=== PATIENT | male | born 1980 | race Caucasian/White ===

== ENCOUNTER 2021-11-17 01:15 | Emergency (ER) | payer OTHER ==
[~2021-11-17] VITALS: Ht 188 cm; Wt 148.3 kg
[~2021-11-17 01:15] MED LIST: ACET325 PO; CIPR500 PO; CITA20 PO; CRUTCH4 USE; CYCL10 PO; DIAZ5 PO; DOXY100 PO; HYDACE5 PO; IBUP600 PO; INDO50 PO; LISI20 PO; LISI5 PO; LORA.5 PO; METR500 PO; NAPR500 PO; OXYACE5T PO; OXYC5 PO; PANT40 PO; PARO10 PO; PARO20 PO; QUET25 PO; THIA100 PO; TRAM50 PO; TRAZ100 PO; Ultram50 MG PO; ZOLP10 PO; [UNRECOGNIZED DRUG - REMARK]
[2021-11-17 02:17] LABS: BASOPHILS ABSOLUTE AUTO 0.04 K/mm3 (0.00-0.23); BASOPHILS PERCENT AUTO 1 % (0-2); EOSINOPHILS ABSOLUTE AUTO 0.13 K/mm3 (0.00-0.68); EOSINOPHILS PERCENT AUTO 2 % (0-6); Hematocrit 37.2 % (37.0-53.0); Hemoglobin 12.8 g/dL (13.5-17.5); IMMATURE GRAN ABSOLUTE AUTO 0.03 K/mm3 (0.00-0.10); IMMATURE GRAN PERCENT AUTO 0 % (0-1); LYMPHOCYTES ABSOLUTE AUTO 1.75 K/mm3 (0.84-5.20); LYMPHOCYTES PERCENT AUTO 20 % (21-46); MONOCYTES ABSOLUTE AUTO 0.87 K/mm3 (0.16-1.47); MONOCYTES PERCENT AUTO 10 % (4-13); Mean Corpuscular HGB 30.3 pg (26.0-34.0); Mean Corpuscular HGB Conc 34.4 g/dL (31.5-36.5); Mean Corpuscular Volume 88 fL (80-100); Mean Platelet Volume 10.5 fL (9.1-12.4); NEUTROPHILS ABSOLUTE AUTO 5.79 K/mm3 (1.96-9.15); NEUTROPHILS PERCENT AUTO 67 % (41-73); Platelet Count 167 K/mm3 (150-400); RDW Coefficient Variation 11.6 % (11.7-14.2); RDW Standard Deviation 36.9 fL (35.1-46.3); Red Blood Cell Count 4.23 M/mm3 (4.30-5.90); White Blood Cell Count 8.61 K/mm3 (4.00-11.30)
[2021-11-17 02:35] LABS: Alanine Aminotransfer (ALT/SGP 43 U/L (12-78); Albumin, Blood 3.7 g/dL (3.4-5.0); Alk Phos 70 U/L (50-136); Anion Gap 6 mmol/L (6-16); Aspartate Aminotrans (AST/SGOT 24 U/L (12-37); Bilirubin, Total 0.2 mg/dL (0.1-1.0); Blood Urea Nitrogen 16 mg/dL (8-24); CO2, Blood 30 mmol/L (21-32); Chloride, Blood 101 mmol/L (98-108); Globulin, Blood 3.6 g/dL (2.2-4.0); Glomerular Filtration Rate >60 (60-); Glucose, Blood 169 mg/dL (70-99); Sodium, Blood 137 mmol/L (136-145); Total Protein, Blood 7.3 g/dL (6.4-8.2)
[2021-11-17 04:57] LABS: Source, Urine Clean Catch
[2021-11-17 05:10] LABS: Appearance, Urine Clear (Clear); Bilirubin, Urine Neg (Neg); Blood, Urine 1+ (Neg); Color, Urine Yellow (P-Yellow); Glucose Qualitative, Urine Neg (Neg); Ketones, Urine Neg (Neg); Leukocyte Esterase, Urine Neg (Neg); Nitrite, Urine Neg (Neg); Protein, Urine Neg (Neg); Specific Gravity, Urine 1.015 (1.003-1.022); Urobilinogen, Urine NORM (Normal)
[2021-11-17 05:19] LABS: Red Blood Cells, Urine Rare /hpf (0-2); Squamous Epithelial Cells Not Seen /hpf (Few); White Blood Cells, Urine Not Seen /hpf (0-5)
[2021-11-17 05:20] LABS: Bacteria Not Seen /hpf
[2021-11-17] MEDS ORDERED: LEVFLO500 PO (05:44)
[2021-11-17] MEDS ORDERED: Lovastatin10 MG PO (16:33)
== END 2021-11-17 06:04 | disposition home or self-care (01) ==
LOC: ER 01:15
PROVIDERS: Student in an Organized Health Care Education/Training Program
DX: G89.18 Other acute postprocedural pain (principal); N50.812 Left testicular pain; I10 Essential (primary) hypertension; E78.00 Pure hypercholesterolemia, unspecified; Z79.899 Other long term (current) drug therapy; Z88.0 Allergy status to penicillin; Z88.8 Allergy status to other drugs, medicaments and biological substances
CPT/HCPCS: 74177; 76870; 80053; 81001; 83690; 85025; 85651; 86140; A9270; J1170; J1885; Q9967

== ENCOUNTER 2021-11-17 14:57 | Inpatient (IN) | payer OTHER ==
[~2021-11-17] VITALS: Ht 190.5 cm; Wt 148.3 kg
[~2021-11-17 14:57] MED LIST changes: +LEVFLO500 PO
[2021-11-17 15:54] LABS: BASOPHILS ABSOLUTE AUTO 0.04 K/mm3 (0.00-0.23); BASOPHILS PERCENT AUTO 0 % (0-2); EOSINOPHILS ABSOLUTE AUTO 0.01 K/mm3 (0.00-0.68); EOSINOPHILS PERCENT AUTO 0 % (0-6); Hematocrit 40.3 % (37.0-53.0); Hemoglobin 14.1 g/dL (13.5-17.5); IMMATURE GRAN ABSOLUTE AUTO 0.05 K/mm3 (0.00-0.10); IMMATURE GRAN PERCENT AUTO 0 % (0-1); LYMPHOCYTES ABSOLUTE AUTO 0.93 K/mm3 (0.84-5.20); LYMPHOCYTES PERCENT AUTO 7 % (21-46); MONOCYTES ABSOLUTE AUTO 1.09 K/mm3 (0.16-1.47); MONOCYTES PERCENT AUTO 8 % (4-13); Mean Corpuscular HGB 30.4 pg (26.0-34.0); Mean Corpuscular Volume 87 fL (80-100); Mean Platelet Volume 10.6 fL (9.1-12.4); NEUTROPHILS PERCENT AUTO 84 % (41-73); Platelet Count 187 K/mm3 (150-400); RDW Coefficient Variation 11.6 % (11.7-14.2); RDW Standard Deviation 37.2 fL (35.1-46.3); Red Blood Cell Count 4.64 M/mm3 (4.30-5.90); White Blood Cell Count 13.52 K/mm3 (4.00-11.30)
[2021-11-17 16:09] LABS: Alanine Aminotransfer (ALT/SGP 46 U/L (12-78); Albumin, Blood 4.1 g/dL (3.4-5.0); Alk Phos 77 U/L (50-136); Anion Gap 7 mmol/L (6-16); Aspartate Aminotrans (AST/SGOT 19 U/L (12-37); Bilirubin, Total 0.7 mg/dL (0.1-1.0); Blood Urea Nitrogen 15 mg/dL (8-24); Bun/Creatinine Ratio 15.8 (12.0-20.0); CO2, Blood 25 mmol/L (21-32); Calcium, Blood 9.4 mg/dL (8.5-10.1); Chloride, Blood 100 mmol/L (98-108); Creatinine, Blood 0.95 mg/dL (0.60-1.20); Glomerular Filtration Rate >60 (60-); Glucose, Blood 165 mg/dL (70-99); Potassium, Blood 4.1 mmol/L (3.5-5.5); Sodium, Blood 132 mmol/L (136-145); Total Protein, Blood 8.1 g/dL (6.4-8.2)
[2021-11-17] MEDS ORDERED: Lovastatin10 MG PO (16:33)
[2021-11-17 16:39] LABS: Source, Urine Clean Catch
[2021-11-17 16:45] LABS: Appearance, Urine Clear (Clear); Bilirubin, Urine Neg (Neg); Blood, Urine 2+ (Neg); Color, Urine Yellow (P-Yellow); Glucose Qualitative, Urine Neg (Neg); Ketones, Urine Neg (Neg); Leukocyte Esterase, Urine Neg (Neg); Nitrite, Urine Neg (Neg); Protein, Urine Neg (Neg); Urobilinogen, Urine NORM (Normal)
[2021-11-17 16:52] LABS: Bacteria Few /hpf; Squamous Epithelial Cells Rare /hpf (Few); White Blood Cells, Urine 0-2 /hpf (0-5)
--- NOTE | 2021-11-18 06:22 | NUR ---
PM SHIFT SUMMARY PATIENT HAD A VASECTOMY 37 DAYS AGO, THEN DEVELOPED A BLOOD CLOT 9 DAYS AFTERWARDS. HIS SCROTAL PAIN STARTED 1 WEEK AGO. HIS PCP PUT HIM ON ABX, WHICH HE TOOK FOR 2 DAYS, THEN HIS UROLOGIST STOPPED THEM. WHEN QUESTIONED, HE STATED HIS SCROTUM IS 4 TIMES NORMAL SIZE. HE IS ON KETOROLAC Q6H, WHICH HE WAS GIVEN TWICE DURING THE SHIFT. HE IS A&Ox4 AND INDEPENDENT. OTHER THAN THE PIAN, HE HAS NO OTHER COMPLAINTS DURING THE SHIFT. HIS BLOOD CULTURES ARE PENDING.
--- NOTE | 2021-11-18 07:16 | NUR ---
SPOKE WITH PATIENT'S BEFORE LEAVING FROM PM SHIFT. UPDATED HER PER NOTES IN SYSTEM. SHE ASKED IF HE WOULD BE TRANSFERRED TO [facility], HE MENTIONED TO HER HE MAY BE. I TOLD HER I COULD NOT ANSWER THAT, NO NOTES MENTIONED THAT AT THIS POINT. LET HER KNOW THAT OTHER THAN SCROTAL PAIN, HE HAD NO COMPLAINTS DURING SHIFT AND SLEPT WELL.
--- NOTE | 2021-11-18 15:42 | NUR ---
SHIFT SUMMARY PT IS A&O, PLEASANT AND CO-OP WITH CARE. INDEPENDENT TO [facility]. C/O ROMERO SINCE ADMISSION, AT THE START OF SHIFT. DR DIEZ NOTIFIED FOR TYLENOL. PT LATER REPORTED ROMERO REMAINED. PT REPORTED PAIN AND SWELLING TO SCROTUM. DR DIEZ UPDATED. TORADOL GIVEN PER EMAR. DR DIEZ IN TO SEE PT, DISCUSSED PLAN OF CARE. ADDITIONAL PAIN MEDICATION ORDERED AND GIVEN. PT REPORTED IT EFFECTIVE FOR ROMERO. PT REPORTED SCROTUM PAIN AND SWELLING SLIGHTLY IMPROVED FROM YESTERDAY, BUT STILL PRETTY MISERABLE. IV ABX ADMINISTERED PER EMAR. PT HAVING LOTS OF VISITORS TODAY. UP TO SHOWER INDEPENDENTLY. CALL LT IN REACH. ABLE TO MAKE NEEDS KNOWN.
--- NOTE | 2021-11-18 22:50 | NUR ---
NURSE NOTE: MD HUNTLEY- NOTIFIED PTS COMPLAINT OF CONTINUED PAIN 9/10 SCROTAL REGION. MD PLACING PAIN MEDICATION ORDER.
--- NOTE | 2021-11-19 05:12 | NUR ---
SHIFT SUMMARY PT REMAINS INDEPENDENT WITH AMBULATION IN ROOM. COMPLAINED OF PAIN 8-9/10 AT BEGINNING OF SHIFT- NO MEDS AVAILABLE TO ADMINISTER FOR PAIN AT THAT TIME. CONTACTED MD FOR ADDITIONAL PAIN MEDS, ONCE OXYCODONE WAS VERIFIED PT WAS RESTING AND DECLINED TO TAKE AT THAT TIME. PT CONTINUED TO REST WHEN ROUNDING. PAIN MEDICATION ADMINISTERED LATER IN SHIFT REVIEW EMAR. BED IN LOW POSITION, BELONGINGS IN REACH.
[2021-11-19 05:39] LABS: BASOPHILS ABSOLUTE AUTO 0.03 K/mm3 (0.00-0.23); BASOPHILS PERCENT AUTO 1 % (0-2); EOSINOPHILS ABSOLUTE AUTO 0.15 K/mm3 (0.00-0.68); EOSINOPHILS PERCENT AUTO 3 % (0-6); Hematocrit 36.6 % (37.0-53.0); Hemoglobin 12.2 g/dL (13.5-17.5); IMMATURE GRAN ABSOLUTE AUTO 0.02 K/mm3 (0.00-0.10); IMMATURE GRAN PERCENT AUTO 0 % (0-1); LYMPHOCYTES ABSOLUTE AUTO 1.26 K/mm3 (0.84-5.20); LYMPHOCYTES PERCENT AUTO 23 % (21-46); MONOCYTES ABSOLUTE AUTO 0.58 K/mm3 (0.16-1.47); MONOCYTES PERCENT AUTO 11 % (4-13); Mean Corpuscular HGB 29.9 pg (26.0-34.0); Mean Corpuscular HGB Conc 33.3 g/dL (31.5-36.5); Mean Corpuscular Volume 90 fL (80-100); Mean Platelet Volume 10.9 fL (9.1-12.4); NEUTROPHILS ABSOLUTE AUTO 3.36 K/mm3 (1.96-9.15); NEUTROPHILS PERCENT AUTO 62 % (41-73); Platelet Count 151 K/mm3 (150-400); RDW Coefficient Variation 11.8 % (11.7-14.2); RDW Standard Deviation 38.4 fL (35.1-46.3); Red Blood Cell Count 4.08 M/mm3 (4.30-5.90)
[2021-11-19 05:52] LABS: Alanine Aminotransfer (ALT/SGP 29 U/L (12-78); Albumin, Blood 3.4 g/dL (3.4-5.0); Albumin/Globulin Ratio 0.9 (0.8-1.8); Alk Phos 66 U/L (50-136); Anion Gap 6 mmol/L (6-16); Aspartate Aminotrans (AST/SGOT 14 U/L (12-37); Bilirubin, Total 0.4 mg/dL (0.1-1.0); Blood Urea Nitrogen 14 mg/dL (8-24); Bun/Creatinine Ratio 18.6 (12.0-20.0); CO2, Blood 26 mmol/L (21-32); Calcium, Blood 9.1 mg/dL (8.5-10.1); Chloride, Blood 105 mmol/L (98-108); Creatinine, Blood 0.75 mg/dL (0.60-1.20); Globulin, Blood 3.9 g/dL (2.2-4.0); Glomerular Filtration Rate >60 (60-); Glucose, Blood 324 mg/dL (70-99); Potassium, Blood 4.3 mmol/L (3.5-5.5); Sodium, Blood 137 mmol/L (136-145); Total Protein, Blood 7.3 g/dL (6.4-8.2)
--- NOTE | 2021-11-19 16:34 | NUR ---
SHIFT SUMMARY PATIENT MEDICATED FOR PAIN X1. PATIENT DENIES NAUSEA AND SHORTNESS OF BREATH. PATIENT IS INDEPENDENT IN ROOM. VISITED ENTIRE SHIFT, THIS CALMED THE PATIENT. PATIENT IS NOW AC AND HS BLOOD GLUCOSE CHECKS WITH INSULIN COVERAGE. PATIENT IS EATING AND DRINKING WELL. PATIENT IS PLEASANT AND COOPERATIVE WITH CARE. PER DR. DIEZ, PATIENT IS A POSSIBLE DISCHARGE TOMORROW.
--- NOTE | 2021-11-20 04:42 | NUR ---
SHIFT SUMMARY: A/OX4, ADLIB. PAIN MEDICATION ADMINISTERED X1- REVIEW EMAR. PT RESTING DURING ROUNDS. BED IN LOW POSITION, BELONGINGS IN REACH.
[2021-11-20 05:31] LABS: BASOPHILS ABSOLUTE AUTO 0.03 K/mm3 (0.00-0.23); BASOPHILS PERCENT AUTO 1 % (0-2); EOSINOPHILS ABSOLUTE AUTO 0.18 K/mm3 (0.00-0.68); EOSINOPHILS PERCENT AUTO 3 % (0-6); Hematocrit 37.3 % (37.0-53.0); Hemoglobin 12.8 g/dL (13.5-17.5); IMMATURE GRAN ABSOLUTE AUTO 0.03 K/mm3 (0.00-0.10); IMMATURE GRAN PERCENT AUTO 1 % (0-1); LYMPHOCYTES ABSOLUTE AUTO 1.37 K/mm3 (0.84-5.20); LYMPHOCYTES PERCENT AUTO 25 % (21-46); MONOCYTES ABSOLUTE AUTO 0.56 K/mm3 (0.16-1.47); MONOCYTES PERCENT AUTO 10 % (4-13); Mean Corpuscular HGB 30.6 pg (26.0-34.0); Mean Corpuscular HGB Conc 34.3 g/dL (31.5-36.5); Mean Corpuscular Volume 89 fL (80-100); Mean Platelet Volume 10.7 fL (9.1-12.4); NEUTROPHILS ABSOLUTE AUTO 3.31 K/mm3 (1.96-9.15); NEUTROPHILS PERCENT AUTO 61 % (41-73); Platelet Count 173 K/mm3 (150-400); RDW Coefficient Variation 11.8 % (11.7-14.2); RDW Standard Deviation 37.5 fL (35.1-46.3); Red Blood Cell Count 4.18 M/mm3 (4.30-5.90); White Blood Cell Count 5.48 K/mm3 (4.00-11.30)
[2021-11-20 06:06] LABS: Anion Gap 5 mmol/L (6-16); Blood Urea Nitrogen 17 mg/dL (8-24); Bun/Creatinine Ratio 19.9 (12.0-20.0); CO2, Blood 27 mmol/L (21-32); Calcium, Blood 8.1 mg/dL (8.5-10.1); Chloride, Blood 105 mmol/L (98-108); Creatinine, Blood 0.85 mg/dL (0.60-1.20); Glomerular Filtration Rate >60 (60-); Glucose, Blood 263 mg/dL (70-99); Potassium, Blood 4.2 mmol/L (3.5-5.5); Sodium, Blood 137 mmol/L (136-145)
[2021-11-20] MEDS ORDERED: ACET325 PO (08:36)
[2021-11-20] MEDS ORDERED: DOXY100 PO (08:37)
[2021-11-20] MEDS ORDERED: CEFD300 PO (08:37)
[2021-11-20] MEDS ORDERED: IBUP800 PO (08:39)
[2021-11-20] MEDS ORDERED: METF500 PO (08:40)
[2021-11-20] MEDS ORDERED: OXYC5 PO (08:41)
[2021-11-20] MEDS ORDERED: SUMA25 PO (08:50)
[2021-11-20] MEDS ORDERED: VISBIOME 112.51 EACH PO (08:51)
--- NOTE | 2021-11-20 12:31 | NUR ---
DISCHARGE PATIENT TRANSPORTED VIA WHEELCHAIR TO PRIVATE VEHICLE. DISCHARGE INSTRUCTIONS EXPLAINED TO PATIENT. PATIENT STATED UNDERSTANDING. PACKET SENT WITH PATIENT. BELONGINGS SENT WITH PATIENT. IV REMOVED WITHOUT DIFFICULTY. MEDICATIONS FAXED TO PREFERRED PHARMACY. PATIENT HAS APPOINTMENT WITH UROLOGY THIS WEEK AND WILL MAKE APPOINTMENT SUNDAY, 11/21 FOR FOLLOW UP WITH PCP.
== END 2021-11-20 12:27 | disposition home or self-care (01) | DRG 862 ==
LOC: ER 14:57 → MEDS 14:58
PROVIDERS: Family Medicine; Physician Assistant; ADMIT Internal Medicine
DX: T81.49XA Infection following a procedure, other surgical site, initial encounter (principal); A41.9 Sepsis, unspecified organism; R65.20 Severe sepsis without septic shock; Z68.41 Body mass index [BMI] 40.0-44.9, adult; E87.1 Hypo-osmolality and hyponatremia; E87.2 Acidosis; T81.44XA Sepsis following a procedure, initial encounter; N45.1 Epididymitis; I10 Essential (primary) hypertension; E78.00 Pure hypercholesterolemia, unspecified; F41.9 Anxiety disorder, unspecified; E66.9 Obesity, unspecified; E11.65 Type 2 diabetes mellitus with hyperglycemia; R51.9 Headache, unspecified; E88.81 Metabolic syndrome and other insulin resistance; F17.210 Nicotine dependence, cigarettes, uncomplicated; F10.10 Alcohol abuse, uncomplicated; Z96.651 Presence of right artificial knee joint; Z88.0 Allergy status to penicillin; Z88.6 Allergy status to analgesic agent; Z98.52 Vasectomy status; Z79.899 Other long term (current) drug therapy
CPT/HCPCS: 36415; 76870; 80048; 80053; 81001; 82947; 83036; 83605; 85025; 87040; 96374; 96375; 96376; 99285-25; A9270; G0378; J0690; J0696; J1170; J1885; J7030; J7050